=== PATIENT | female | born 1990 | race Asian ===

== ENCOUNTER 2017-10-15 14:16 | Emergency (ER) | payer MEDICAID ==
[~2017-10-15] VITALS: Ht 162.6 cm; Wt 71.3 kg
[2017-10-15 14:26] VITALS: Ht 162.6 cm; Wt 71.3 kg
[2017-10-15 16:44] VITALS: BP 131/87
== END 2017-10-15 16:44 | disposition home or self-care (01) ==
LOC: ED 14:16
DX: S05.02XA Injury of conjunctiva and corneal abrasion without foreign body, left eye, initial encounter (principal); Z88.2 Allergy status to sulfonamides; X58.XXXA Exposure to other specified factors, initial encounter; Y93.89 Activity, other specified; Y92.89 Other specified places as the place of occurrence of the external cause; Y99.8 Other external cause status